=== PATIENT | female | born 1945 | race Caucasian/White ===

== ENCOUNTER 2019-11-16 12:29 | Inpatient (IN) | payer MEDICARE ==
[~2019-11-16] VITALS: Ht 160 cm; Wt 61.4 kg
[2019-11-16] MEDS ORDERED: OMEPRAZOLE20 M1 PO (12:36)
[2019-11-16] MEDS ORDERED: ZYRTEC10 MG PO (12:36)
[2019-11-16] MEDS ORDERED: ASPIRIN81 MG PO (12:37)
[2019-11-16] MEDS ORDERED: LISINOPRIL20 MG PO (12:37)
[2019-11-16] MEDS ORDERED: REGLAN10 MG PO (12:37)
[2019-11-16] MEDS ORDERED: K-TAB10 MEQ PO (12:37)
[2019-11-16] MEDS ORDERED: FELDENE20 MG PO (12:38)
[2019-11-16] MEDS ORDERED: COREG 3.1253.125 MG PO (12:38)
[2019-11-16] MEDS ORDERED: HYDROCHLOROTHIA25 MG PO (12:38)
[2019-11-16] MEDS ORDERED: ULTRAM50 MG PO (12:38)
[2019-11-16] MEDS ORDERED: DETROL LA4 MG PO (12:39)
[2019-11-16 12:42] VITALS: BP 158/84
[2019-11-16 13:06] LABS: HEMATOCRIT 38.2 % (36.0-48.0); HEMOGLOBIN 12.9 g/dL (12-16); LYMPHOCYTES 16.6 % (15-50); MCH 28.2 pg (26.0-34.0); MCHC 33.8 g/dL (31.0-37.0); MCV 83.6 fL (80.0-100.0); MEAN PLATELET VOLUME 8.3 fL (7.4-10.4); NEUTROPHILS 70.2 % (40-80); PLATELET COUNT 454 10x3/uL (130-400); RBC 4.57 10x6/uL (4.00-5.40); RDW 14.2 % (11.5-14.5); WBC 8.2 10x3/uL (4.8-10.8)
[2019-11-16 13:11] LABS: APTT 30.5 SECONDS (22.8-39.4); INR 0.94 (0.85-1.17); PROTIME 12.5 SECONDS (11.6-15.0)
[2019-11-16 13:28] LABS: ALBUMIN 3.8 g/dL (3.4-5.0); ALKALINE PHOSPHATASE 152 U/L (30-120); ALT (SGPT) 19 U/L (10-68); BILIRUBIN - TOTAL 1.04 mg/dL (0.2-1.3); CALC OSMOLALITY 226 mosm/kg (275-300); CALCIUM 8.7 mg/dL (8.5-10.1); CKMB 3.2 U/L (0.0-3.6); CREATINE KINASE 177 UL (21-215); CREATININE - SERUM 0.8 mg/dL (0.6-1.3); GLUCOSE 97 mg/dL (74-106); MAGNESIUM - SERUM 1.7 mg/dL (1.8-2.4); POTASSIUM - SERUM 3.9 mmol/L (3.5-5.1); PROTEIN - SERUM 7.2 g/dL (6.4-8.2); THYROID STIMULATING HORMONE 0.84 uIU/mL (0.36-3.74); TROPONIN-I < 0.017 ng/mL (0.000-0.060); UREA NITROGEN 13 mg/dL (7-18); eGFR NON AFRICAN AMERICAN 75 mL/min (90-120)
[2019-11-16 13:29] LABS: CHLORIDE - SERUM 79 mmol/L (98-107); SODIUM 112 mmol/L (136-145)
--- NOTE | 2019-11-16 13:33 | NUR ---
IN AND OUT DONE ON PT . SHE ERNIE. WELL. URINE SENT TO LAB
[2019-11-16 13:46] LABS: BACTERIA FEW /hpf (NEGATIVE); BILIRUBIN NEGATIVE (NEGATIVE); EPITHELIAL CELLS OCC /hpf (0-5); GLUCOSE NEGATIVE (NEGATIVE); KETONE NEGATIVE (NEGATIVE); NITRITE NEGATIVE (NEGATIVE); RED CELLS - URINE 0-5 /hpf (0-5); SPECIFIC GRAVITY 1.015 (1.005-1.020); UROBILINOGEN NORMAL (NORMAL); WHITE CELLS - URINE RARE /hpf (NEGATIVE)
[2019-11-16 13:52] LABS: UDS - AMPHET NEGATIVE QUAL (NEGATIVE); UDS - BARB NEGATIVE QUAL (NEGATIVE); UDS - BENZO NEGATIVE QUAL (NEGATIVE); UDS - COCAINE NEGATIVE QUAL (NEGATIVE); UDS - OPIATE NEGATIVE QUAL (NEGATIVE); UDS - PCP NEGATIVE QUAL (NEGATIVE); UDS - THC NEGATIVE QUAL (NEGATIVE)
[2019-11-16 17:04] VITALS: Ht 160 cm; Wt 61.4 kg
--- NOTE | 2019-11-16 18:45 | NUR ---
PATIENT IN BED WITH IV INTACT. NO COMPLAINTS OR SIGNS OF DISTRESS. VS STABLE AT THIS TIME. CALL LIGHT WITHIN REACH.
[2019-11-16 20:00] VITALS: BP 149/75
--- NOTE | 2019-11-17 03:00 | NUR ---
I have reviewed this patient and I concur with the Shift Assessment completed by the Licensed Practical Nurse today this shift.
[2019-11-17 06:46] LABS: BASOPHILS 0.4 % (0-2); EOSINOPHILS 12.2 % (0-7); HEMATOCRIT 39.6 % (36.0-48.0); HEMOGLOBIN 13.1 g/dL (12-16); IMMATURE GRANULOCYTES 0.3 % (0-5); LYMPHOCYTES 24.1 % (15-50); MCHC 33.1 g/dL (31.0-37.0); MEAN PLATELET VOLUME 8.9 fL (7.4-10.4); MONOCYTES 16.3 % (2-11); NEUTROPHILS 46.7 % (40-80); RBC 4.52 10x6/uL (4.00-5.40); RDW 14.1 % (11.5-14.5); WBC 7.3 10x3/uL (4.8-10.8)
[2019-11-17 06:47] LABS: MCV 87.6 fL (80.0-100.0); PLATELET COUNT 351 10x3/uL (130-400)
[2019-11-17 07:09] LABS: ALBUMIN 3.6 g/dL (3.4-5.0); ALKALINE PHOSPHATASE 144 U/L (30-120); ALT (SGPT) 17 U/L (10-68); BILIRUBIN - TOTAL 0.68 mg/dL (0.2-1.3); CALC OSMOLALITY 243 mosm/kg (275-300); CALCIUM 8.6 mg/dL (8.5-10.1); CHLORIDE - SERUM 91 mmol/L (98-107); CREATININE - SERUM 0.6 mg/dL (0.6-1.3); GLUCOSE 86 mg/dL (74-106); POTASSIUM - SERUM 3.8 mmol/L (3.5-5.1); PROTEIN - SERUM 6.8 g/dL (6.4-8.2); SODIUM 122 mmol/L (136-145); UREA NITROGEN 10 mg/dL (7-18); eGFR NON AFRICAN AMERICAN > 90 mL/min (90-120)
--- NOTE | 2019-11-17 08:05 | NUR ---
RESTING IN BED, NO DISTRESS NOTED, PUREWICK IN PLACE, IV INFUSING PER LFA, CONT TO MONITOR CONFUSION, BED ALARMS ON
[2019-11-17 08:27] VITALS: BP 135/87
[2019-11-17 13:15] VITALS: BP 136/76
[2019-11-17 17:46] VITALS: BP 169/83
--- NOTE | 2019-11-17 18:15 | HP ---
PATIENT: VIOLETTA OLIVEIRA MEDICAL RECORD: [id number] ACCOUNT: [id number] LOCATION:D.MS [address] : [birth year] ADMISSION DATE: 11/16/19 PCP: FARHANA JEFF HISTORY AND PHYSICAL EXAMINATION CHIEF COMPLAINT: Confusion. HISTORY OF PRESENT ILLNESS: This is a 74-year-old female brought in via EMS and was "not acting herself" since yesterday. She is awake and alert. She answers questions, but in the ED she said the year was 1998. She does not know who our president is. In the ED, significant findings showed sodium of 112 and chloride of 79. Rest of her workup was fairly unremarkable. She is admitted for hyponatremia and metabolic encephalopathy. PAST MEDICAL HISTORY: (This is obtained from chart as the patient is not felt to be reliable source of information), hypertension, depression, anxiety, arthritis, and reflux. PAST SURGICAL HISTORY: She thinks she had her tonsils out. DRUG ALLERGIES: None known. HOME MEDICATIONS: Reportedly, are Cetirizine 10 mg once a day, omeprazole 20 mg once a day, potassium 10 mEq once a day, hydrochlorothiazide 25 mg once a day, Reglan 10 mg twice a day, lisinopril 20 mg once a day, aspirin 81 mg once a day, tramadol 50 mg q.6 hours p.r.n. pain, carvedilol 3.125 mg twice a day, Piroxicam 20 mg once a day, and Detrol-LA 4 mg once a day. SOCIAL HISTORY: Reportedly single, lives with her sister in the [facility]. FAMILY HISTORY: The patient states her father is still alive and lives in [place], but she never tell me any past medical history. REVIEW OF SYSTEMS: GENERAL: Again, the patient is not felt reliable, but she stated that she had no significant weight changes. She has some allergies. HEENT: Some allergies. CARDIAC: No known history of heart disease. RESPIRATORY: No known COPD or asthma. GASTROINTESTINAL: She has some reflux. GENITOURINARY: Has overactive bladder. MUSCULOSKELETAL: She has arthritic aches and pains. NEUROLOGIC: Reportedly, no seizures or migraine headaches. PSYCHIATRIC: She has history of depression. PHYSICAL EXAMINATION: VITAL SIGNS: Temperature 98.1, pulse 70, respirations 18, and blood pressure 158/84. GENERAL: The patient is lying comfortably in hospital bed. She is awake. She is alert. She answers questions but again she seems confused on some issues, not felt to be a reliable source of information at this time. SKIN: Warm and dry. HEENT: Grossly within normal limits. NECK: Supple. No JVD or bruit. HEART: Regular rate and rhythm without murmur. HISTORY AND PHYSICAL [id number] ROXANNEVIOLETTA J LUNGS: Clear. ABDOMEN: Soft, flat, nontender. EXTREMITIES: No edema. NEUROLOGIC: She follows instructions. LABORATORY DATA: Urinalysis was within normal limits. Urine drug screen negative. CBC normal. Basic metabolic panel showed sodium of 112 and chloride of 79. Liver functions were normal. INR 0.94. Magnesium 1.7, ammonia level 29, and troponin less than 0.017. IMAGING: Chest x-ray shows nothing acute. CT of the head shows no acute problems. There are some chronic changes. ASSESSMENT: 1. Metabolic encephalopathy. 2. Hyponatremia. PLAN: We will check lipids. She was started on IV fluids in the ED. We will order fluid restriction. Other tests and procedures as warranted. TRANSINT:[id number] Voice Confirmation ID: [id number] DOCUMENT ID: [id number] EVANGELINA PICKETT MD at 1815 CC: [id number] DICTATION DATE: 11/17/1932 SCHOOL COOK: 11/17/19 0326 ADM IN [facility] [address] [id number]
[2019-11-17 20:00] VITALS: BP 149/86
[2019-11-18] VITALS: BP 154/90
[2019-11-18 04:00] VITALS: BP 176/95
[2019-11-18 06:10] LABS: CALC OSMOLALITY 257 mosm/kg (275-300); CALCIUM 8.2 mg/dL (8.5-10.1); CARBON DIOXIDE 25.8 mmol/L (21.0-32.0); CHLORIDE - SERUM 99 mmol/L (98-107); CREATININE - SERUM 0.7 mg/dL (0.6-1.3); GLUCOSE 98 mg/dL (74-106); POTASSIUM - SERUM 3.6 mmol/L (3.5-5.1); SODIUM 129 mmol/L (136-145); UREA NITROGEN 9 mg/dL (7-18); eGFR NON AFRICAN AMERICAN 87 mL/min (90-120)
--- NOTE | 2019-11-18 08:14 | NUR ---
resting in bed, no distress noted, iv infusing per lac, cont to monitor for confusion
[2019-11-18 09:35] VITALS: BP 167/98
[2019-11-18 12:31] VITALS: BP 143/84
[2019-11-18] MEDS ORDERED: SODIUM BICARBO325 MG PO (15:19)
[2019-11-18 16:17] VITALS: BP 142/82
--- NOTE | 2019-11-18 16:30 | NUR ---
REVIEWED D/C ORDERS WITH PT, VOICED NO CONCERNS, D/C IV, TIP INTACT, CALLS PLACED TO FIND PT A RIDE HOME, BUT NUMBERS ON CHART INCORRECT, PT UNABLE TO REMEMBER NUMBERS, HAS GIVEN ME MULTIPLE NUMBERS TO TRY BUT UNABLE TO REACH HER SISTER PATRIA, CASE SHANELL WORKING ON THIS
--- NOTE | 2019-11-18 18:00 | NUR ---
NUMBER FOR PATRIA OBTAINED FROM [facility], NUMBER GOES STRAIGHT TO VOICE MAIL WHICH HAS NOT BEEN SET UP,
--- NOTE | 2019-11-18 19:33 | MORECARE ---
CASE MANAGEMENT DISCHARGE SUMMARY PATIENT: VIOLETTA OLIVEIRA UNIT: [id number] ADM DATE: 11/16/19 AGE: 74 : 47 SEX: F ROOM/BED: D.2222 AUTHOR: KIMMY LEMON PHYSICIAN: REFERRING PHYSICIAN: EVANGELINA PICKETT MD DATE OF SERVICE: 11/18/19 Discharge Plan Patient Name: VIOLETTA OLIVEIRA Facility: [facility]:[place] : 1945 Planned Disposition: Home with Home Health Anticipated Discharge Date: Discharge Date: Expected LOS: Initial Reviewer: [email or web address] Initial Review Date: 11/16/2019 Generated: 11/18/19 8:32 pm Patient Name: VIOLETTA OLIVEIRA Page [id number] at 1933 All edits/amendments must be made on the electronic document DICTATION DATE: 11/18/191932 MANAGER CAMP: LANI 11/18/191932 RPT#: [id number] DC DATE: STATUS: ADM IN [facility] [address] [place] [address] END OF REPORT
--- NOTE | 2019-11-18 19:51 | MORECARE ---
CASE MANAGEMENT DISCHARGE SUMMARY PATIENT: VIOLETTA OLIVEIRA UNIT: [id number] ADM DATE: 11/16/19 AGE: 74 : 47 SEX: F ROOM/BED: D.2222 AUTHOR: KIMMY LEMON PHYSICIAN: REFERRING PHYSICIAN: EVANGELINA PICKETT MD DATE OF SERVICE: 11/18/19 Discharge Plan Patient Name: VIOLETTA OLIVEIRA Facility: [facility]:[place] : 1945 Planned Disposition: Home with Home Health Anticipated Discharge Date: Discharge Date: Expected LOS: Initial Reviewer: [email or web address] Initial Review Date: 11/16/2019 Generated: 11/18/19 8:51 pm DCPIA - Discharge Planning Initial Assessment Updated by [email or web address]: Kim Gonzalez on 11/18/19 7:47 pm * Is the patient Alert and Oriented? Yes * How many steps to enter\exit or inside your home? RAMP * PCP BRASHEA * Pharmacy [facility] IN [place] * Preadmission Environment Home with Family * ADLs Independent * Other Equipment WALKER, W/C * List name and contact numbers for known caregivers / representatives who currently or will assist patient after discharge: PATRIA PAZ [facility] [phone] NOT CORRECT NUMBER * Verbal permission to speak to the caregivers and representatives has been obtained from the patient. Yes * Community resources currently utilized Home Health * Please name any agencies selected above. [facility] * Additional services required to return to the preadmission environment? No * Can the patient safely return to the preadmission environment? Yes * Has this patient been hospitalized within the prior 30 days at any hospital? No Last DP export: 11/18/19 6:33 p Patient Name: VIOLETTA OLIVEIRA Page [id number] at 1950 All edits/amendments must be made on the electronic document DICTATION DATE: 11/18/191950 ADMINISTRATION MANAGER: LANI 11/18/191950 RPT#: [id number] DC DATE: STATUS: ADM IN [address] [address] [place] [address] END OF REPORT
--- NOTE | 2019-11-18 19:58 | MORECARE ---
CASE MANAGEMENT DISCHARGE SUMMARY PATIENT: VIOLETTA OLIVEIRA UNIT: [id number] ADM DATE: 11/16/19 AGE: 74 : 47 SEX: F ROOM/BED: D.2222 AUTHOR: KIMMY LEMON PHYSICIAN: REFERRING PHYSICIAN: EVANGELINA PICKETT MD DATE OF SERVICE: 11/18/19 Discharge Plan Patient Name: VIOLETTA OLIVEIRA Facility: [facility]:[place] : 1945 Planned Disposition: Home with Home Health Anticipated Discharge Date: Discharge Date: Expected LOS: Initial Reviewer: [email or web address] Initial Review Date: 11/16/2019 Generated: 11/18/19 8:57 pm Comments DCP- Discharge Planning Updated by [email or web address]: Kim Gonzalez on 11/18/19 6:[address] Patient Name: VIOLETTA OLIVEIRA Admission Status: ER Accout number: [id number] Admission Date: 11-16-2019 : 1945 Admission Diagnosis: Attending: EVANGELINA PICKETT Current LOS: 2 Anticipated DC Date: Planned Disposition: Home with Home Health Primary Insurance: [employer] CHOICE PPO [facility]1983 Discharge Planning Comments: CM met with patient to complete initial dc planning assessment. CM educated patient on the CM role and verbal consent given by patient to complete assessment. Patient lives at home with her sister Paulette Hernandez. Patient is independent. At discharge patient plans to return home and feels this is a safe discharge. CM discussed availability of home health, rehab services, and medical equipment. Patient states that she has [facility] and plans to resume care. Patient stated to call her sister to pick her up. Patient will have family to transport home. Patient denied known discharge needs at this time. D/C IMM signed 11/18/19 @ 1617. CM will continue to follow and will assist as needed with dc plans/needs. CM notified later this day that nursing can not contact sister for transportation home because phone number isn't correct. CM contacted [facility] to see if they have a contact number listed. Adri called CM back and was given a number for Paulette Hernandez [phone]. CM attempted to call number several times and it would go straight to this voicemail box isn't set up. CM passed the number on to nursing for them to continue trying to call. Vascular Specialists: Kim Gonzalez DCPIA - Discharge Planning Initial Assessment Updated by [email or web address]: Kim Gonzalez on 11/18/19 7:47 pm * Is the patient Alert and Oriented? Yes * How many steps to enter\exit or inside your home? RAMP * PCP BRASHEARS * Pharmacy [facility] IN [place] * Preadmission Environment Home with Family * ADLs Independent * Other Equipment WALKER, W/C * List name and contact numbers for known caregivers / representatives who currently or will assist patient after discharge: PATRIA MONROE- [phone] NOT CORRECT NUMBER * Verbal permission to speak to the caregivers and representatives has been obtained from the patient. Yes * Community resources currently utilized Home Health * Please name any agencies selected above. [facility] * Additional services required to return to the preadmission environment? No * Can the patient safely return to the preadmission environment? Yes * Has this patient been hospitalized within the prior 30 days at any hospital? No Last DP export: 11/18/19 6:51 p Patient Name: VIOLETTA OLIVEIRA Page 31098 at 1958 All edits/amendments must be made on the electronic document DICTATION DATE: 11/18/191956 POWDER LINE REPAIRER: LANI 11/18/191956 RPT#: [id number] DC DATE: STATUS: ADM IN [facility] [address] [place] [address] END OF REPORT
--- NOTE | 2019-11-18 20:56 | NUR ---
CALLED ALL PHONE NUMBERS LISTED ON CHART REGARDING PT DISCHARGE. PHONE NUMBERS ON CHART [phone] AND [phone] ARE BOTH WRONG NUMBERS. [phone] HAS A MESSAGE FROM SOMEONE NAMED "RAFAT" - THE PT DOES NOT KNOW ANYONE NAMED RAFAT. SOMEONE NAMED "BILL" ANSWERS [phone] AND PT DOES NOT KNOW HIM NOR DOES HE KNOW HER. (PT GAVE PERMISSION TO GIVE HER NAME IN REGARD TO THESE CALLS.) THE NUMBER [facility] SUPPLIED THE SISTER'S NUMBER BUT IT GOES STRAIGHT TO "A VOICE MAILBOX THAT HAS NOT BEEN SET UP YET."
[2019-11-18 21:23] VITALS: BP 135/85
[2019-11-19 00:56] VITALS: BP 124/76
[2019-11-19 06:47] VITALS: BP 145/78
--- NOTE | 2019-11-19 06:55 | NUR ---
A&O X4. UP WITH WALKER. NO C/O PAIN. NO S/S OF ACUTE DISTRESS NOTED. KENTRELL. SCDS. DISCHARGED, AWAITING PICKUP FROM SISTER PATRIA. THIS NURSE WILL FOLLOW UP TODAY AND CALL PCP TO SEE IF THEY HAVE A GOOD PHONE NUMBER FOR SISTER. DENIES ANY NEEDS AT THIS TIME. CALL LIGHT IN REACH. ALARM ON. WILL COTNINUE TO MONITOR.
--- NOTE | 2019-11-19 08:01 | NUR ---
LYING IN BED,WITHOUT DISTRESS.FALL PREVENTION IN PLACE
[2019-11-19 08:27] VITALS: BP 195/92
--- NOTE | 2019-11-19 11:00 | NUR ---
DC PATIENT HOME VIA WHEELCHAIR WITH SISTER. WENT OVER DISCHARGE INSTRUCTIONS WITH PATIENT, VERBALZIED UNDERSTANDING. DENIES ANYTHING FURTHER.
--- NOTE | 2019-11-19 15:01 | MORECARE ---
CASE MANAGEMENT DISCHARGE SUMMARY PATIENT: VIOLETTA OLIVEIRA UNIT: [id number] ADM DATE: 11/16/19 AGE: 74 : 47 SEX: F ROOM/BED: D.2222 AUTHOR: KIMMY LEMON PHYSICIAN: REFERRING PHYSICIAN: EVANGELINA PICKETT MD DATE OF SERVICE: 11/19/19 Discharge Plan Patient Name: VIOLETTA OLIVEIRA Facility: [facility]:[place] : 1945 Planned Disposition: Home with Home Health Anticipated Discharge Date: Discharge Date: 11/19/2019 Expected LOS: Initial Reviewer: [email or web address] Initial Review Date: 11/16/2019 Generated: 11/19/19 4:00 pm Comments DCP- Discharge Planning Updated by [email or web address]: Kim Gonzalez on 11/18/19 6:[address] Patient Name: VIOLETTA OLIVEIRA Admission Status: ER Accout number: [id number] Admission Date: 11-16-2019 : 1945 Admission Diagnosis: Attending: EVANGELINA PICKETT Current LOS: 2 Anticipated DC Date: Planned Disposition: Home with Home Health Primary Insurance: [employer] CHOICE PPO [facility] Discharge Planning Comments: CM met with patient to complete initial dc planning assessment. CM educated patient on the CM role and verbal consent given by patient to complete assessment. Patient lives at home with her sister Paulette Hernandez. Patient is independent. At discharge patient plans to return home and feels this is a safe discharge. CM discussed availability of home health, rehab services, and medical equipment. Patient states that she has [facility] and plans to resume care. Patient stated to call her sister to pick her up. Patient will have family to transport home. Patient denied known discharge needs at this time. D/C IMM signed 11/18/19 @ 4208. CM will continue to follow and will assist as needed with dc plans/needs. CM notified later this day that nursing can not contact sister for transportation home because phone number isn't correct. CM contacted [facility] to see if they have a contact number listed. Adri called CM back and was given a number for Paulette Hernandez [phone]. CM attempted to call number several times and it would go straight to this voicemail box isn't set up. CM passed the number on to nursing for them to continue trying to call. Drug Safety Assistant: Kim Gonzalez DCPIA - Discharge Planning Initial Assessment Updated by [email or web address]: Kim Gonzalez on 11/18/19 7:47 pm * Is the patient Alert and Oriented? Yes * How many steps to enter\exit or inside your home? RAMP * PCP BRASHEARS * Pharmacy [facility] IN [place] * Preadmission Environment Home with Family * ADLs Independent * Other Equipment WALKER, W/C * List name and contact numbers for known caregivers / representatives who currently or will assist patient after discharge: PATRIA MONROE- [phone] NOT CORRECT NUMBER * Verbal permission to speak to the caregivers and representatives has been obtained from the patient. Yes * Community resources currently utilized Home Health * Please name any agencies selected above. [facility] * Additional services required to return to the preadmission environment? No * Can the patient safely return to the preadmission environment? Yes * Has this patient been hospitalized within the prior 30 days at any hospital? No Coverage Notice Reviewer: [email or web address] - Kim Gonzalez Notice Issued Date-Time: 11/18/2019 16:18 Notice Type: IM Discharge Notice Notice Delivered To: Patient Relationship to Patient: Self Manager Privacy Name: Delivery Method: HAND - Hand Delivered Mony Days: Prior Verbal Notification: Recipient Understood Notice: Yes Recipient Signature: Yes Med Rec Note Co-signed by Attending: Coverage Notice Comment: Last DP export: 11/18/19 6:58 p Patient Name: VIOLETTA OLIVEIRA Page 75191 at 1501 All edits/amendments must be made on the electronic document DICTATION DATE: 11/19/19 1500 RECEPTION CENTRE MANAGER: LANI 11/19/19 1500 RPT#: [id number] DC DATE:11/19/19 STATUS: DIS IN [facility] [address] [facility] [place] [address] END OF REPORT
--- NOTE | 2019-11-20 15:36 | MORECARE ---
CASE MANAGEMENT DISCHARGE SUMMARY PATIENT: VIOLETTA OLIVEIRA UNIT: [id number] ADM DATE: 11/16/19 AGE: 74 : 47 SEX: F ROOM/BED: D.2222 AUTHOR: KIMMY LEMON PHYSICIAN: REFERRING PHYSICIAN: EVANGELINA PICKETT MD DATE OF SERVICE: 11/20/19 Discharge Plan Patient Name: VIOLETTA OLIVEIRA Facility: [facility]:[place] : 1945 Planned Disposition: Home with Home Health Anticipated Discharge Date: Discharge Date: 11/19/2019 Expected LOS: Initial Reviewer: [email or web address] Initial Review Date: 11/16/2019 Generated: 11/20/19 4:35 pm Comments DCP- Discharge Planning Updated by [email or web address]: Stacy Guerra on 11/20/19 2:[address] CM received a phone call from Adri Nguyen with [facility], requesting required information for [facility]. Faxed to [phone]. DCP- Discharge Planning Updated by [email or web address]: Kim Gonzalez on 11/18/19 6:[address] Patient Name: VIOLETTA OLIVEIRA Admission Status: ER Accout number: [id number] Admission Date: 11-16-2019 : 1945 Admission Diagnosis: Attending: EVANGELINA PICKETT Current LOS: 2 Anticipated DC Date: Planned Disposition: Home with Home Health Primary Insurance: [employer] CHOICE PPO [facility] Discharge Planning Comments: CM met with patient to complete initial dc planning assessment. CM educated patient on the CM role and verbal consent given by patient to complete assessment. Patient lives at home with her sister Paulette Hernandez. Patient is independent. At discharge patient plans to return home and feels this is a safe discharge. CM discussed availability of home health, rehab services, and medical equipment. Patient states that she has [facility] and plans to resume care. Patient stated to call her sister to pick her up. Patient will have family to transport home. Patient denied known discharge needs at this time. D/C IMM signed 11/18/19 @ 1618. CM will continue to follow and will assist as needed with dc plans/needs. CM notified later this day that nursing can not contact sister for transportation home because phone number isn't correct. CM contacted [facility] to see if they have a contact number listed. Adri called CM back and was given a number for Paulette Hernandez [phone]. CM attempted to call number several times and it would go straight to this voicemail box isn't set up. CM passed the number on to nursing for them to continue trying to call. Integrated Marketing Specialist: Kim Gonzalez DCPIA - Discharge Planning Initial Assessment Updated by [email or web address]: Kim Gonzalez on 11/18/19 7:47 pm * Is the patient Alert and Oriented? Yes * How many steps to enter\exit or inside your home? RAMP * PCP BRASHEARS * Pharmacy [facility] IN [place] * Preadmission Environment Home with Family * ADLs Independent * Other Equipment WALKER, W/C * List name and contact numbers for known caregivers / representatives who currently or will assist patient after discharge: PATRIA HERNANDEZ - - [phone] NOT CORRECT NUMBER * Verbal permission to speak to the caregivers and representatives has been obtained from the patient. Yes * Community resources currently utilized Home Health * Please name any agencies selected above. [facility] * Additional services required to return to the preadmission environment? No * Can the patient safely return to the preadmission environment? Yes * Has this patient been hospitalized within the prior 30 days at any hospital? No External Providers External Provider: [facility] Next Contact Date: Service Request Date: Service Type: Resolution: Reviewer: Comments: Coverage Notice Reviewer: [email or web address] - Kim Gonzalez Notice Issued Date-Time: 11/18/2019 16:18 Notice Type: IM Discharge Notice Notice Delivered To: Patient Relationship to Patient: Self Dispatch Supervisor Name: Delivery Method: HAND - Hand Delivered Mony Days: Prior Verbal Notification: Recipient Understood Notice: Yes Recipient Signature: Yes Med Rec Note Co-signed by Attending: Coverage Notice Comment: Last DP export: 11/19/19 2:01 p Patient Name: VIOLETTA OLIVEIRA Page 34481 at 1536 All edits/amendments must be made on the electronic document DICTATION DATE: 11/20/19 1351 VIBRATION TECHNICIAN: LANI 11/20/19 9174 RPT#: [id number] DC DATE:11/19/19 STATUS: DIS IN [facility] [address] [place] [address] END OF REPORT
== END 2019-11-19 12:42 | disposition home health service (06) | DRG 640 ==
LOC: D.ER 12:29 → EDBD 12:29 → D.MS 14:01
PROVIDERS: Family Medicine; ADMIT Family Medicine; ATTEND Family Medicine
DX: E87.1 Hypo-osmolality and hyponatremia (principal); G93.41 Metabolic encephalopathy; I10 Essential (primary) hypertension; F41.8 Other specified anxiety disorders; E87.8 Other disorders of electrolyte and fluid balance, not elsewhere classified